=== PATIENT | female | born 1955 | race African-American/Black ===

== ENCOUNTER 2017-12-19 11:36 | Emergency (ER) | payer MEDICAID, MEDICARE, OTHER ==
[~2017-12-19] VITALS: Ht 154.9 cm; Wt 64.9 kg
[2017-12-19] MEDS ORDERED: SOMA350 MG PO (11:38)
[2017-12-19] MEDS ORDERED: UNOBMED (11:39)
[2017-12-19 11:43] VITALS: BP 238/107
[2017-12-19] MEDS ORDERED: Metoclopramide 10mg/2ml Inj IVP ONE (11:45)
[2017-12-19] MEDS ORDERED: DiphenhydrAMINE 50mg/ml Inj IVP ONE (11:45)
--- NOTE | 2017-12-19 12:12 | Emergency Room Report ---
History of Present Illness General Chief Complaint: Pain Source: Patient, EMS Present Illness HPI The patient presents with increasing back and right leg pain. In addition she has pain in her left leg. The right leg pain is chronic - has had > 1 year. She feels it radiating from her groin down to her foot. She denies any recent trauma. She's been on medication for this. She also has a headache. As she was running out of pain medication, she took more Soma today. She feels generalized weakness. She denies attempt to harm herself. The patient denies any fevers, blood thinners, oncologic problem, tingling, incontinence or saddle numbness. She does not use IV drugs. No URI sy, cough, chest pain, dyspnea, NVD, dysuria. Allergies: Coded Allergies: HYDROCODONE (Unverified Allergy, Unknown, 12/19/17) IBUPROFEN (Unverified Allergy, Unknown, 12/19/17) Patient History Past Medical History: see triage record Social History: Denies: alcohol use, drug use Social History Narrative lives at home by h herself Last Menstrual Period: Post Reviewed Nursing Documentation: PMH: Agreed; PSxH: Agreed Nursing Documentation-PMH Hx Hypertension: Yes Review of Systems All Other Systems: negative except mentioned in HPI Physical Exam Vital Signs Date Time Temp Pulse Resp B/P (MAP) Pulse Ox O2 Delivery O2 Flow Rate FiO2 12/19/17 11:33 98.6 103 20 238/107 98 Room Air 98.6 Sp02 EP Interpretation: reviewed, normal General Appearance: no apparent distress, GCS 15, lethargic Head: normocephalic, atraumatic Eyes: bilateral eye normal inspection, bilateral eye PERRL, bilateral eye EOMI ENT: moist mucus membranes Neck: supple Respiratory: lungs clear, normal breath sounds Cardiovascular #1: regular rate, rhythm Cardiovascular #2: 2+ radial (R) Gastrointestinal: normal inspection, normal bowel sounds, non tender, no mass, non-distended Musculoskeletal: normal range of motion, tender - lumbar area with + SLR bilat Neurologic: oriented x3, motor strength/tone normal, sensory intact, no Babinski, other - lethargic, moving all 4 with good strength Psychiatric: depressed affect Skin: normal inspection, warm/dry Medical Decision Making Diagnostic Impression: Primary Impression: Soma ovedose Additional Impressions: Exacerbation of sciatica Hypertension Qualified Codes: I10 - Essential (primary) hypertension ER Course The patient presents with increased lower extremity pain. In addition to that she's slurred and quite somnolent. She states she's been unable to ambulate. Differential includes exacerbation of sciatica, degenerative disc disease, UTI, medication excess and electrolyte imbalance amongst others. Evaluation will be with EKG, CT of the head, lumbar spine films, chest x-ray and labs. Chest x-ray has no infiltrates. CT of the head is unremarkable. Lumbar spine films show significant spondylolisthesis and degenerative disc disease. The patient is somnolent here not complaining about pain. When she's awakened she does complain of some pain. She states she's been taking increased amount of her Soma to control the pain. Because of this she's needing to be observed in the hospital. We called [facility] to get a list of her current medications. They include Restoril 15 mg twice a day, Soma 350 mg 3 times a day, morphine extended release 30 mg twice a day, Tylenol No. 4 every 4-6 hours, been as a peripheral 20 mg twice a day, Dyazide once daily. The patient's complaining about pain. An acetaminophen level is added. The patient received Reglan and Benadryl. In addition to that she'll be given a dose of Toradol 15 mg IV. Blood pressure is high. Given benazepril. BP still high. Hydralazine given with improvement. The patient is still unsteady on her feet and needs observation. Initially admitted to Dr. Mera, then insurance called to arrange for transfer. Patient somewhat improved but needing continued observation. Laboratory Tests Test 12/19/17 11:15 12/19/17 12:40 White Blood Count 9.6 K/UL (4.8-10.8) Red Blood Count 3.74 M/UL (4.20-5.40) L Hemoglobin 12.2 G/DL (12.0-16.0) Hematocrit 36.8 % (37.0-47.0) L Mean Corpuscular Volume 98 FL (80-99) Mean Corpuscular Hemoglobin 32.5 PG (27.0-31.0) H Mean Corpuscular Hemoglobin Concent 33.0 G/DL (32.0-36.0) Red Cell Distribution Width 13.0 % (11.6-14.8) Platelet Count 329 K/UL (150-450) Mean Platelet Volume 7.5 FL (6.5-10.1) Neutrophils (%) (Auto) 66.5 % (45.0-75.0) Lymphocytes (%) (Auto) 28.5 % (20.0-45.0) Monocytes (%) (Auto) 3.6 % (1.0-10.0) Eosinophils (%) (Auto) 0.2 % (0.0-3.0) Basophils (%) (Auto) 1.2 % (0.0-2.0) Prothrombin Time 10.6 SEC (9.30-11.50) Prothrombin Time INR 1.0 (0.9-1.1) PTT 25 SEC (23-33) Sodium Level 143 MMOL/L (136-145) Potassium Level 3.4 MMOL/L (3.5-5.1) L Chloride Level 106 MMOL/L (98-107) Carbon Dioxide Level 29 MMOL/L (21-32) Anion Gap 8 mmol/L (5-15) Blood Urea Nitrogen 6 mg/dL (7-18) L Creatinine 0.8 MG/DL (0.55-1.30) Estimate Glomerular Filtration Rate > 60 mL/min (>60) Glucose Level 97 MG/DL (74-106) Calcium Level 10.6 MG/DL (8.5-10.1) H Total Bilirubin 0.4 MG/DL (0.2-1.0) Aspartate Amino Transferase (AST) 16 U/L (15-37) Alanine Aminotransferase (ALT) 18 U/L (12-78) Alkaline Phosphatase 111 U/L (46-116) Total Creatine Kinase 26 U/L (26-308) Troponin I 0.004 ng/mL (0.000-0.056) Pro-B-Type Natriuretic Peptide 1295 pg/mL (0-125) H Total Protein 9.0 G/DL (6.4-8.2) H Albumin 3.5 G/DL (3.4-5.0) Globulin 5.5 g/dL Albumin/Globulin Ratio 0.6 (1.0-2.7) L Acetaminophen Level < 2 MCG/ML (10-30) L Urine Color Pale yellow Urine Appearance Clear Urine pH 8 (4.5-8.0) Urine Specific M[place]ot 1.010 (1.005-1.035) Urine Protein Negative (NEGATIVE) Urine Glucose (UA) Negative (NEGATIVE) Urine Ketones Negative (NEGATIVE) Urine Occult Blood Negative (NEGATIVE) Urine Nitrite Negative (NEGATIVE) Urine Bilirubin Negative (NEGATIVE) Urine Urobilinogen 1 MG/DL (0.0-1.0) H Urine Leukocyte Esterase 1+ (NEGATIVE) H Urine RBC 0-2 /HPF (0 - 2) Urine WBC 0-2 /HPF (0 - 2) Urine Squamous Epithelial Cells Few /LPF (NONE/OCC) Urine Bacteria Occasional /HPF (NONE) Urine Opiates Screen Positive (NEGATIVE) H Urine Barbiturates Screen Negative (NEGATIVE) Phencyclidine (PCP) Screen Negative (NEGATIVE) Urine Amphetamines Screen Negative (NEGATIVE) Urine Benzodiazepines Screen Positive (NEGATIVE) H Urine Cocaine Screen Negative (NEGATIVE) Urine Marijuana (THC) Screen Negative (NEGATIVE) EKG Diagnostic Results Rate: normal Rhythm: NSR ST Segments: no acute changes Rhythm Strip Diag. Results EP Interpretation: yes Rhythm: NSR, no PVC's, no ectopy Chest X-Ray Diagnostic Results Chest X-Ray Diagnostic Results : Chest X-Ray Ordered: Yes # of Views/Limited/Complete: 1 View Indication: Other EP Interpretation: Yes Interpretation: no consolidation, no effusion, no pneumothorax, no acute cardiopulmonary disease Impression: No acute disease Electronically Signed by: Electronically signed by Gibson Flanagan MD Other X-Ray Diagnostic Results Other X-Ray Diagnostic Results : X-Ray ordered: Lumbar spine films # of Views/Limited Vs Complete: 3 View Indication: Pain Interpretation: no soft tissue swelling, no fractures, other - Spondylolisthesis and degenerative disc disease Impression: Other Electronically Signed by: Electronically signed by Gibson Flanagan MD CT/MRI/US Diagnostic Results CT/MRI/US Diagnostic Results : Imaging Test Ordered: Head Impression no bleed mass or fracture Last Vital Signs Date Time Temp Pulse Resp B/P (MAP) Pulse Ox O2 Delivery O2 Flow Rate FiO2 12/19/17 15:58 97.9 84 29 188/55 98 Room Air 97.9 Status: improved Disposition: XFER SHT-TRM HOSP Condition: Serious Gibson Flanagan M.D. December 19, 2017 12:12
[2017-12-19 12:21] LABS: BASOPHILS % (AUTO) 1.2 % (0.0-2.0); EOSINOPHILS % (AUTO) 0.2 % (0.0-3.0); HEMATOCRIT 36.8 % (37.0-47.0); HEMOGLOBIN 12.2 G/DL (12.0-16.0); LYMPHOCYTES % (AUTO) 28.5 % (20.0-45.0); MEAN CORPUSCULAR VOLUME 98 FL (80-99); MONOCYTES % (AUTO) 3.6 % (1.0-10.0); NEUTROPHILS % (AUTO) 66.5 % (45.0-75.0); PLATELET COUNT 329 K/UL (150-450); RED BLOOD COUNT 3.74 M/UL (4.20-5.40); WHITE BLOOD COUNT 9.6 K/UL (4.8-10.8)
[2017-12-19 12:27] LABS: ANION GAP 8 mmol/L (5-15); BLOOD UREA NITROGEN 6 mg/dL (7-18); CALCIUM 10.6 MG/DL (8.5-10.1); CARBON DIOXIDE 29 MMOL/L (21-32); CHLORIDE 106 MMOL/L (98-107); CREATININE 0.8 MG/DL (0.55-1.30); POTASSIUM 3.4 MMOL/L (3.5-5.1); SODIUM 143 MMOL/L (136-145)
--- NOTE | 2017-12-19 12:31 | Diagnostic Imaging Report ---
EXAM: CT Head Without Intravenous Contrast CLINICAL HISTORY: Headache TECHNIQUE: Axial computed tomography images of the head/brain without intravenous contrast. CTDI is 70.53 mGy and DLP is 1340.90 mGy-cm. One or more of the following dose reduction techniques were used: automated exposure control, adjustment of the mA and/or kV according to patient size, use of iterative reconstruction technique. COMPARISON: No relevant prior studies available. FINDINGS: Brain: Unremarkable. No evidence of acute intracranial hemorrhage. No significant white matter disease. No edema. No mass effect or midline shift. Ventricles: Unremarkable. No ventriculomegaly. Bones/joints: Unremarkable. No acute fracture. Soft tissues: Unremarkable. Sinuses: Unremarkable as visualized. No acute sinusitis. Mastoid air cells: Unremarkable as visualized. No mastoid effusion. IMPRESSION: Unremarkable noncontrast CT of the head/brain.
[2017-12-19 12:40] LABS: ALANINE AMINOTRANSFERASE 18 U/L (12-78); ALBUMIN 3.5 G/DL (3.4-5.0); ALBUMIN/GLOBULIN RATIO 0.6 (1.0-2.7); ALKALINE PHOSPHATASE 111 U/L (46-116); ASPARTATE AMINO TRANSFERASE 16 U/L (15-37); BILIRUBIN,TOTAL 0.4 MG/DL (0.2-1.0); CREATINE KINASE 26 U/L (26-308)
[2017-12-19 12:57] LABS: APPEARANCE,URINE CLEAR; BILIRUBIN, URINE NEGATIVE (NEGATIVE); COLOR,URINE PALE YELLOW; GLUCOSE, URINE (UA) NEGATIVE (NEGATIVE); KETONES,URINE NEGATIVE (NEGATIVE); LEUKOCYTE ESTERASE ,URINE 1+ (NEGATIVE); NITRITE,URINE NEGATIVE (NEGATIVE); PH,URINE 8 (4.5-8.0); PROTEIN,URINE NEGATIVE (NEGATIVE); UROBILINOGEN,URINE 1 MG/DL (0.0-1.0)
[2017-12-19 13:30] VITALS: BP 210/107
[2017-12-19] MEDS ORDERED: MORPHINE IR15 MG ORAL (13:38)
[2017-12-19] MEDS ORDERED: TRIAMTERENE-HC1 EAC7 ORAL (13:38)
[2017-12-19] MEDS ORDERED: RESTORIL15 MG ORAL (13:38)
[2017-12-19] MEDS ORDERED: BENAZEPRIL HCL20 MG ORAL (13:38)
[2017-12-19] MEDS ORDERED: ACETAMINOPHEN-1 EAC2 ORAL (13:38)
[2017-12-19] MEDS ORDERED: Benazepril 10mg tab ORAL ONE (13:45)
[2017-12-19] MEDS ORDERED: Ketorolac 30mg Inj IV ONE (14:15)
[2017-12-19 15:58] VITALS: BP 188/55
[2017-12-19 18:00] VITALS: BP 188/69
[2017-12-19] MEDS ORDERED: Morphine Sulfate 4mg/ml Inj IVP ONE (19:15)
[2017-12-19] MEDS ORDERED: Morphine Sulfate 4mg/ml Inj ONE (19:17)
[2017-12-19 19:34] VITALS: BP 167/63
[2017-12-19 19:40] VITALS: BP 167/63
--- NOTE | 2017-12-20 12:08 | Diagnostic Imaging Report ---
Indication: Headache Technique: XRAY Chest 1v Comparison: None Findings: Lung volumes artifactually exaggerate heart size and vascular markings. There may be borderline cardiomegaly. There are atherosclerotic calcifications in the aorta. There is bibasilar likely expiratory atelectasis. No pleural effusion or pneumothorax. No acute osseous abnormality. IMPRESSION: Limited exam with low lung volumes. Borderline cardiomegaly. Bibasilar likely expiratory atelectasis.
--- NOTE | 2017-12-20 12:15 | Diagnostic Imaging Report ---
Indication: Pain Technique: XRAY L Spine Ltd Comparison: None Findings: There is mild rotatory levoscoliosis on frontal view. There is no evidence to suggest acute fracture. There is degenerative change of the spine with disc space narrowing and endplate productive change. Disc space narrowing most pronounced at L4-5 and L5-S1. There is grade 1 retrolisthesis of L5 on S1. This is thought to be degenerative in etiology. There is likely facet arthropathy in the lower lumbar sacral spine. There are atherosclerotic vascular calcifications. IMPRESSION: Scoliosis and degenerative change of the lumbar spine as above. No evidence of acute fracture.
--- NOTE | 2017-12-20 18:53 | Cardiology Report ---
APPROVED REPORT EKG Measurement Heart [id number] ID [id number] Normal sinus rhythm Possible Left atrial enlargement Nonspecific ST and T wave abnormality Abnormal ECG
== END 2017-12-19 19:40 | disposition short-term general hospital (02) ==
LOC: EDBD 11:36 → EDBEDREQ 13:21 → EMR 14:11 → EDBEDREQ 14:44 → EMR 19:40
DX: T42.8X1A Poisoning by antiparkinsonism drugs and other central muscle-tone depressants, accidental (unintentional), initial encounter (principal); M54.30 Sciatica, unspecified side; R40.0 Somnolence; R47.81 Slurred speech; I10 Essential (primary) hypertension; Z88.6 Allergy status to analgesic agent; Z88.5 Allergy status to narcotic agent; M41.86 Other forms of scoliosis, lumbar region; R51 Headache
CPT/HCPCS: 36415; 70450; 71045; 72020; 80053; 80307; 81003; 82550; 83880; 84484; 85025; 85610; 85730; 93005; 99285; G0480; J0360; J1200; J1885; J2270; J2765; 80329